=== PATIENT | female | born 1935 | race Caucasian/White ===

== ENCOUNTER 2016-05-23 16:16 | Observation (INO) | payer MEDICARE ==
[2016-05-23] MEDS ORDERED: Acetaminophen TAB* 325 MG PO PRN (17:34)
[2016-05-23] MEDS ORDERED: Ondansetron TAB* 4 MG PO PRN (17:46)
[2016-05-23] MEDS ORDERED: Cetirizine* 10 MG TAB PO PRN (17:47)
[2016-05-23] MEDS: Atorvastatin* 10 MG TAB PO SCH (18:13)
[2016-05-23] MEDS: Coenzyme Q10 (NF) ** ENTER STREGNTH IN LABEL DIRECTIONS PO SCH (18:14)
[2016-05-23] MEDS: Enoxaparin(*) 40 MG/0.4 ML SYR SUBCUT SCH (18:16)
[2016-05-23] MEDS: NS 0.9% 1000 ML* 1,000 ML IV SCH (18:27)
[2016-05-23] MEDS: Piperac/Tazob 3.375 gm in NS* 3.375 GM/100 ML BAG IVPB SCH (20:04)
[2016-05-23] MEDS: Calcium/Vitamin D TAB 250/125* TAB PO SCH (20:43)
--- NOTE | 2016-05-23 20:56 | RAD ---
INDICATION: Fever and cough COMPARISON: Chest x-ray December 19, 2015 TECHNIQUE: PA and lateral views of the chest were obtained. FINDINGS: The right internal jugular vein Mediport is appropriately positioned with the tip terminating at the cavoatrial junction. The heart and mediastinum are normal in size and contour. The lungs are grossly clear. There is no evidence of large pleural effusion. Visualized bones are normal for the patient's age. There is no radiographic evidence of free air beneath the diaphragm IMPRESSION: No radiographic evidence of acute cardiopulmonary disease.
--- NOTE | 2016-05-23 21:05 | RAD ---
HISTORY: Fever, leukocytosis and hyperbilirubinemia COMPARISONS: CT chest abdomen pelvis dated November 12, 2015 TECHNIQUE: Multiple transverse and longitudinal ultrasound images were obtained of the right upper quadrant. FINDINGS: LIVER: The liver is normal in dimensions and echogenicity. Normal hepatic and portal venous blood flow is duplicated with color flow imaging. There is no gross intrahepatic biliary duct dilatation. GALLBLADDER AND EXTRAHEPATIC BILIARY DUCT: The patient is status post cholecystectomy. There is no definite intrahepatic biliary duct dilatation. The common bile duct measures a maximum diameter of 4 mm. PANCREAS: The portions of the pancreas not obscured by bowel gas are normal in appearance. RIGHT KIDNEY: The right kidney is normal in size, morphology and echogenicity. IMPRESSION: NO ACUTE ABNORMALITY IN THE RIGHT UPPER QUADRANT PATIENT STATUS POST CHOLECYSTECTOMY.
[2016-05-24] MEDS: Piperac/Tazob 3.375 gm in NS* 3.375 GM/100 ML BAG IVPB SCH (05:09)
[2016-05-24] MEDS ORDERED: Levothyroxine TAB* 75 MCG TAB PO SCH (06:00)
[2016-05-24] MEDS ORDERED: Omeprazole CAP* 20 MG PO SCH (07:30)
[2016-05-24] MEDS: Coenzyme Q10 (NF) ** ENTER STREGNTH IN LABEL DIRECTIONS PO SCH (07:51)
[2016-05-24] MEDS: Calcium/Vitamin D TAB 250/125* TAB PO SCH (07:58)
[2016-05-24] MEDS ORDERED: Multivitamins/Minerals TAB PO SCH (09:00)
[2016-05-24] MEDS ORDERED: Losartan TAB* 25 MG PO SCH (09:00)
[2016-05-24] MEDS: NS 0.9% 1000 ML* 1,000 ML IV SCH (09:19)
[2016-05-24 10:07] LABS: Hematocrit 38 % (35-47); Hemoglobin 12.4 g/dl (12.0-16.0); Mean Corpuscular HGB Conc 33 g/dl (31-36); Mean Corpuscular Hemoglobin 28 pg (27-31); Mean Corpuscular Volume 85 fL (80-97); Mean Platelet Volume 7 um3 (7.4-10.4); Red Blood Count 4.47 10^6/ul (4.0-5.4); Red Cell Distribution Width 14 % (10.5-15); White Blood Count 8.6 10^3/ul (3.5-10.8)
[2016-05-24 10:11] LABS: Add Diff/Slide Review? Slide Review Added; Comments Flag Yes
[2016-05-24 10:28] LABS: Albumin 3.5 g/dL (3.2-5.2); BUN/Creatinine Ratio 13.7 (8-20); Calcium 8.6 mg/dL (8.6-10.3); EGFR African American 72.4 (>60); EGFR Non-African American 56.3 (>60); Globulin 2.3 g/dL (2-4); Potassium 3.3 mmol/L (3.5-5.0); Total Bilirubin 0.9 mg/dL (0.2-1.0); Total Protein 5.8 g/dL (6.4-8.9)
[2016-05-24 10:46] LABS: Eosinophils % 2 % (0-6); Immature Granulocytes 8 % (0-9); Metamyelocytes % 2 % (0-2); Neutrophil % 69 % (38-83); RBC Morphology Normal (Normal); Reactive Lymph % 1 % (0-6)
[2016-05-24] MEDS ORDERED: Azithromycin TAB* 250 MG PO ONE (10:48)
[2016-05-24] MEDS ORDERED: Potassium Chlor TAB* 20 MEQ TAB.ER PO SCH (11:00)
--- NOTE | 2016-05-24 11:03 | DS ---
- Discharge Summary BRIEF OBSERVATION DISCHARGE SUMMARY ADMIT DATE:05/23/2016 DISCHARGE DATE: 05/24/2016 DISCHARGE DIAGNOSIS: 1. bronchitis, likely viral 2. hypokalemia 3. hypomagnesemia 4. dehydration 5. 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 delay chemotherapy x 1 week, chemo now 06/02/2016 at 8 am 2. fu with primary MD within 4 weeks HOSPITAL COURSE: See full admit H+P , but briefly 81 yo F w CLL on immunotherapy presenting with low grade fevers, cough, left sinus and ear pressure and fatigue after being exposed to a family member with a viral URI. She was admitted and placed on IV antibiotics. She has slight increase in her bilirubin and so RUQ US was performed which was unremarkable. her flu swab was negative. She is feeling markedly better today and will be given a prescription for azithromycin to cover possible bacterial sources given her relative immunocompromise with her disease. She was also given electrolyte repletion IV and started on PO kcl. Her therapy will be delayed one week.
[2016-05-24 11:04] LABS: Magnesium 1.6 mg/dL (1.9-2.7)
[2016-05-24] MEDS: KCL 20 MEQ/100 ML IVPREMIX* 20 MEQ/100 ML BAG IV SCH ×2 (11:28→15:05)
[2016-05-24] MEDS ORDERED: Magnesium Sulfate 2 GM IV* 2 GM/50 ML BAG IVPB ONE (12:50)
[2016-05-24 15:59] VITALS: BP 120/59
[2016-05-24] MEDS: Atorvastatin* 10 MG TAB PO SCH (17:07)
[2016-05-24] MEDS: Enoxaparin(*) 40 MG/0.4 ML SYR SUBCUT SCH (17:25)
== END 2016-05-24 17:50 | disposition home or self-care (01) ==
LOC: MED 17:09
PROVIDERS: ADMIT Internal Medicine Hematology & Oncology; ATTEND Internal Medicine Hematology & Oncology
DX: J20.8 Acute bronchitis due to other specified organisms (principal); E87.6 Hypokalemia; E86.0 Dehydration; E83.42 Hypomagnesemia; C91.10 Chronic lymphocytic leukemia of B-cell type not having achieved remission; Z79.899 Other long term (current) drug therapy; Z88.8 Allergy status to other drugs, medicaments and biological substances
CPT/HCPCS: 36415; 71020; 76705; 80053; 83735; 85025; 87070; 87205; 87502; 96365; 96366; 96367; 99217; 99225; A9270-GY; G0378; J1642; J1650; J2543; J3475; J3480

== ENCOUNTER 2018-04-21 11:03 | Emergency (ER) | payer MEDICARE ==
[2018-04-21 11:21] VITALS: BP 142/78
--- NOTE | 2018-04-21 12:22 | UC ---
Respiratory Complaint HPI - HPI Summary HPI Summary: Patient: 4 day hx of cough, chest tightness, laryngitis. No fever. Hx. positive for CLL. MD: EVENS; 99.8; 142/78; p ox: 96. 5/10 chest tightness with breathing. Nurse: pt states she has had a cough starting sunday and lost her voice on sunday evening. pt states she has tightness ion her chest when she coughs. - History of Current Complaint Chief Complaint: UCRespiratory Stated Complaint: URI Time Seen by Provider: 04/21/18 12:13 Pain Intensity: 5 - Allergies/Home Medications Allergies/Adverse Reactions: Allergies Allergy/AdvReac Type Severity Reaction Status Date / Time ceftazidime Allergy Rash Verified 04/21/18 11:21 Home Medications: Home Medications Bimatoprost 0.01% OPHTH (NF) [Lumigan 0.01% OPHTH (NF)] 1 drop BOTH EYES QPM 07/08 [History Confirmed 04/21/18] Calcitonin ([place]) INJ* [Miacalcin INJ*] 200 mg .SEE ORDER 04/21/18 [History] PMH/Surg Hx/FS Hx/Imm Hx - Additional Past Medical History Additional PMH: PMH: CLL; previous episodes of bronchitis. Has hypertension, being treated, Losartan. Family: cvd, STROKE, htn - Surgical History Surgical History: Yes Surgery Procedure, Year, and Place: gallbladder, appi, lumpectomy, - Family History Known Family History: Positive: Hypertension - Social History Alcohol Use: Rare Alcohol Amount: 1-2 glasses wine/month Substance Use Type: None Smoking Status (MU): Never Smoked Tobacco - Immunization History Most Recent Influenza Vaccination: Fall 2015 Most Recent Tetanus Shot: UTD Most Recent Pneumonia Vaccination: 2014 Review of Systems All Other Systems Reviewed And Are Negative: Yes Constitutional: Positive: Negative. Negative: Fever, Chills Skin: Positive: Negative Eyes: Positive: Negative ENT: Positive: Negative Respiratory: Positive: Negative, Cough - intermittent, non-productive, no chest pain c/w pneumonia. Negative: Shortness Of Breath Cardiovascular: Positive: Negative Gastrointestinal: Positive: Negative Genitourinary: Positive: Negative Motor: Positive: Negative Neurovascular: Positive: Negative Musculoskeletal: Positive: Negative Neurological: Positive: Negative Psychological: Positive: Negative Is Patient Immunocompromised?: Yes - unclear; has been treated for CLL Physical Exam - Summary Physical Exam Summary: Appearance: The patient is well-appearing, is in no pain or distress, and is well-nourished. Eyes: Conjunctiva are clear. Pupils are equal and reactive to light and accommodation. Extra ocular muscle movement is intact. ENT: The hearing is grossly normal, the pharynx is normal, and the TMs are normal. There is no muffled or hoarse voice. No stridor. Neck: The neck is supple and there is no lymphadenopathy. Respiratory: The chest is nontender to palpation and without crepitus. The lungs are clear, there are normal breath sounds, and there is no respiratory distress. No wheezes, rales or rhonchi. Intermittent no productive cough. No chest tenderness with palpation. Cardiovascular: Heart sounds reveal a regular rate and rhythm. There are no clicks, rubs or murmurs. There are no carotid bruits or thrills. Circulation is grossly intact. Abdomen: The abdomen is soft and nontender. There is no organomegaly. Bowel sounds are present and within normal limits. No point tenderness at McBurneys point. Musculoskeletal: Strength is intact. The patient moves all extremities. Neurological: The patient is alert. Motor and sensory are examination grossly intact. Speech is normal. Psychological: The patient displays age appropriate behavior Skin: Negative for rashes. Triage Information Reviewed: Yes Vital Signs: Initial Vital Signs Temp 99.8 F 04/21/18 11:16 Pulse 97 04/21/18 11:16 Resp 18 04/21/18 11:16 BP 142/78 04/21/18 11:16 Pulse Ox 96 04/21/18 11:16 Diagnostic Evaluation - Laboratory O2 Sat by Pulse Oximetry: 96 Respiratory Course/Dx - Course Course Of Treatment: D3-year-old female with a four-day history of a nonproductive cough yesterday [facility] with her daughter concerned about pneumonia and bronchitis. Patient has a history of CLL although she is not currently being treated for that. She has been treated in the past with azithromycin for bronchitis. Her examination shows the lungs to be clear. Her temperature is 99.8, and I discussed with the patient and her daughter the pros and cons of taking an antibiotic. We decided that the patient would begin Zithromax and call her oncologist tomorrow to review her condition and treatment. - Differential Dx/Diagnosis Differential Diagnosis/HQI/PQRI: Asthma, Bronchitis, Laryngitis, Lower Resp Infection, Pulmonary Embolism, Sinusitis Provider Diagnosis: Bronchitis Discharge - Sign-Out/Discharge Documenting (check all that apply): Patient Departure All imaging exams completed and their final reports reviewed: No Studies - Discharge Plan Condition: Stable Disposition: HOME Prescriptions: Azithromycin TAB* [Zithromax TAB*] 250 mg PO DAILY #6 tab Patient Education Materials: Acute Bronchitis (ED) Referrals: Carlos Becker MD [Primary Care Provider] - Additional Instructions: WE DISCUSSED: PLEASE SEEK CARE AT THE EMERGENCY DEPARTMENT IF SYMPTOMS WORSEN OR IF NEW SYMPTOMS DEVELOP. FOLLOW UP WITH YOUR PRIMARY CARE PHYSICIAN IF CONDITION CONTINUES BEYOND 3 DAYS WITHOUT IMPROVEMENT. YOUR DIAGNOSIS IS: BRONCHITIS YOUR PRESCRIPTION RECOMMENDATION IS: Zithromax for 5 days OTHER INSTRUCTIONS: Call your physician tomorrow to discuss current condition and treatment. For laryngitis and cough: restrict speaking; rest voice; warm tea and honey; vaporizer. Try to keep throat and lungs moist. - Billing Disposition and Condition Condition: STABLE Disposition: Home
== END 2018-04-21 12:45 | disposition home or self-care (01) ==
LOC: UCEAST 11:03
DX: J40 Bronchitis, not specified as acute or chronic (principal); Z88.1 Allergy status to other antibiotic agents
CPT/HCPCS: 99212; G0463

== ENCOUNTER 2018-08-03 09:32 | Emergency (ER) | payer MEDICARE ==
--- OUTSIDE RECORDS SUMMARY | 2018-08-03 09:44 | XMS REPORT | Continuity of Care Document ---
:1935 External Reference #:[id number] Author Name Xavier José, OD Address [address] [place] [address] Care Team Providers Name Role Phone Carlos Becker MD Care Team Information Open Shank Coverer Unavailable Eugenio ROSE, Carlos Primary Care Physician Unavailable Payers Date Identification Numbers Payment Provider Subscriber Policy Number: [id number] [facility] Medicare Debbie Duncan PayID: [id number] [address] [address] [place] [address] Advance Directives Description No Information Available Problems Description No Information Family History Date Family Member(s) Observation Comments Father Glasses Father High BP Father Heart Disease Father Cerebrovascular Accident Mother Glasses Mother Heart Disease Social History Type Date Description Comments Sex Unknown ETOH Use Rarely consumes alcohol Tobacco Use Start: Unknown Patient has never smoked Smoking Status Reviewed: 07/11/18 Patient has never smoked Allergies, Adverse Reactions, Alerts Date Description Reaction Status Severity Comments 04/04/2017 Ceftazidime Sodium Active Medications Medication Date Status Form Strength Qnty SIG Indications Ordering Provider Rajesh 05/23/ Active Solution 0.01% 7.5uni Instill 1 2017 ts Drop In Arnav, OD Both Eyes Every Night AT Bedtime Calcitonin / Active Solution 200Unit/Ac Unknown ([place]) 0000 t Caltrate 600 / Active Tablets 1500(600Ca Unknown 0000 ) mg Cetirizine HCL / Active Tablets 10mg Unknown 0000 Co Q 10 / Active Capsules 10mg Unknown 0000 Lansoprazole / Active Capsules 30mg Unknown 0000 DR Levothyroxine / Active Tablets 75mcg Unknown Sodium 0000 Losartan 00/ Active Tablets 100mg Unknown Potassium 0000 Simvastatin 00/00/ Active Tablets 20mg Unknown 0000 Leukeran /00/ Active Tablets 2mg Unknown 0000 Rajesh 04/10/ Hx Solution 0.01% 7.500m one drop Xavier Johnson - l every Arnav, OD 05/23/ night at 2018 bedtime both eyes Immunizations Description No Information Available Vital Signs Date Vital Result Comment 04/05/2018 11:02am Intraocular Pressure Right Eye 17 mmHg Intraocular Pressure Left Eye 17 mmHg 11/20/2017 8:40am Intraocular Pressure Right Eye 18 mmHg Intraocular Pressure Left Eye 19 mmHg 08/21/2017 10:06am Intraocular Pressure Right Eye 19 mmHg Intraocular Pressure Left Eye 18 mmHg 05/23/2017 10:04am Intraocular Pressure Right Eye 20 mmHg Intraocular Pressure Left Eye 20 mmHg 04/10/2017 8:36am Intraocular Pressure Right Eye 28 mmHg Intraocular Pressure Left Eye 26 mmHg Cornea Thickness Left Eye 572 m Cornea Thickness Right Eye 590 m Pachymetry adjusted IOP Right Eye -1 Pachymetry adjusted IOP Left Eye -3 04/04/2017 9:19am Intraocular Pressure Right Eye 25 mmHg Intraocular Pressure Left Eye 25 mmHg Results Description No Information Available Procedures Date Code Description Status 07/11/2018 27888 Visual Field Exam Extended, Unilateral Or Bilateral Completed 07/11/2018 97255 Eye Exam Est Intermediate Completed 04/05/2018 52948 Fundus Photography W/Interpretation & Report Completed 04/05/2018 75292 Eye Exam Est Comprehensive Completed 11/20/2017 62855 Eye Exam Est Intermediate Completed 05/23/2017 56500 Eye Exam Est Intermediate Completed 04/10/2017 91400 Oct, Optic Nerve Completed 04/10/2017 58279 Visual Field Exam Extended, Unilateral Or Bilateral Completed 04/10/2017 18196 Eye Exam Est Intermediate Completed 04/04/2017 29783 Fundus Photography W/Interpretation & Report Completed 04/04/2017 43958 Eye Exam New Intermediate Completed Encounters Type Date Location Provider Dx Diagnosis Office Visit 08/21/2017 Main Office Xavier José, OD H40.1131 Primary open-angle 9:45a glaucoma, bilateral, mild stage Plan of Treatment 07/11/2018 - Xavier José, [id number] Combined forms of age-related cataract, [id number] Primary open-angle glaucoma, bilateral, mild stageFollow up:3 mos OCT nerve, sooner PRN
[2018-08-03] MEDS ORDERED: Acetaminophen TAB* 325 MG PO ONE (10:22)
[2018-08-03] MEDS ORDERED: Lactated Ringers 1000 ML Bag* 1,000 ML IV.FLUID IV ONE (10:22)
[2018-08-03] MEDS ORDERED: Cefepime(*) 1 GM in NS 0.9% 50 ML* 50 ML IVPB ONE ×2 (10:26→11:00)
[2018-08-03] MEDS: NS 0.9% 1000 ML** 1,000 ML IV ONE ×2 (10:28→10:54)
[2018-08-03] MEDS ORDERED: NS 0.9% 1000 ML** 1,000 ML IV ONE (10:28)
[2018-08-03 10:30] LABS: ABS Basophils 0 10^3/ul (0-0.2); ABS Eosinophils 0 10^3/ul (0-0.6); ABS Lymphocytes 0.5 10^3/ul (1.0-4.8); ABS Monocytes 0.8 10^3/ul (0-0.8); ABS Neutrophils 6.5 10^3/ul (1.5-7.7); ABS Nucleated RBC 0 10^3/ul; Eosinophil % 0.6 %; Hematocrit 39 % (33-41); Hemoglobin 13.1 g/dL (12.0-16.0); Lymphocyte % 6.4 %; Mean Corpuscular HGB Conc 33 g/dL (31-36); Mean Corpuscular Hemoglobin 29 pg (27-31); Mean Corpuscular Volume 89 fL (80-97); Mean Platelet Volume 7.2 fL (7.4-10.4); Nucleated Red Blood Cells % 0; Platelet Count 61 10^3/uL (150-450); Red Blood Count 4.44 10^6 /uL (3.70-4.87); Red Cell Distribution Width 14 % (10.5-15); White Blood Count 7.8 10^3/uL (3.5-10.8)
[2018-08-03 10:47] LABS: Albumin 4.1 g/dL (3.2-5.2); Albumin/Globulin Ratio 2.2 (1-3); BUN/Creatinine Ratio 13.9 (8-20); Calcium 9.1 mg/dL (8.6-10.3); EGFR African American 54.4 (>60); Globulin 1.9 g/dL (2-4); Potassium 3.9 mmol/L (3.5-5.0); Total Bilirubin 0.9 mg/dL (0.2-1.0)
--- NOTE | 2018-08-03 10:56 | ED ---
HPI Febrile Illness - HPI Summary HPI Summary: Patient is an 83-year-old female presenting to the ED with fever and cough. Patient is a CLL patient and sees Dr. Brown and MADHAVI Aquino. On arrival, patient states she feels well, however endorses some sweats and chills. She states she believes this is at her baseline no due to the CLL. Daughter at bedside stated she was febrile at home with a cough. She last took her chemotherapy medications on 07/24/18 (10 days ago). She does endorse a cough, however is not bringing anything up with this. Daughter states this is a dry cough. Denies any worsening SOB. Denies known sick contacts. She did receive her flu and pneumonia vaccinations this year. Patient denies any CP. - History of Current Complaint Chief Complaint: EDUpperRespComplaint Hx Obtained From: Patient Onset/Duration: Started Hours Ago Timing: Constant Initial Severity: Mild Current Severity: Mild Pain Intensity: 0 Pain Scale Used: 0-10 Numeric Aggravating Factors: Nothing Alleviating Factors: Nothing Associated Signs and Symptoms: Chills, Cough, Diaphoresis, Night Sweats - Risk Factors Pseudomonas Risk Factors: Negative Serious Bacterial Infection Risk Factors: Negative - Additional Pertinent History Primary Care Physician: [id number] - Allergy/Home Medications Allergies/Adverse Reactions: Allergies Allergy/AdvReac Type Severity Reaction Status Date / Time ceftazidime Allergy Rash Verified 08/03/18 09:57 Home Medications: Home Medications Acetaminophen [Tylenol Extra Strength] 500 mg PO Q6H PRN 08/03/18 [History Confirmed 08/03/18] Cetirizine* [ZyrTEC 10 MG TAB*] 10 mg PO DAILY 08/03/18 [History Confirmed 08/03] Multivitamin [Multivitamins] 1 cap PO DAILY 08/03/18 [History Confirmed 08/03/18 ] Ubidecarenone/[place]-3/Vit E [Co Q-10 Vitamin E Fish Oi] 1 cap PO DAILY 08/03/18 [History Confirmed 08/03/18] PMH/Surg Hx/FS Hx/Imm Hx Previously Healthy: Yes Endocrine/Hematology History: Reports: Hx Thyroid Disease, Hx Anemia Denies: Hx Diabetes Cardiovascular History: Reports: Hx Hypercholesterolemia, Hx Hypertension Denies: Hx Congestive Heart Failure Comment Only: Other Cardiovascular Problems/Disorders - POWERPORT REMOVAL Respiratory History: Denies: Hx Pneumonia GI History: Reports: Hx Gall Bladder Disease - removed, Other GI Disorders - appendectomy History: Reports: Hx Renal Disease - abnormal gfr, Other Problems/ Disorders - prolapsed uterus, with pessary Denies: Hx Dialysis Musculoskeletal History: Reports: Hx Arthritis, Other Musculoskeletal History - degenerative disc disease, sciatica Sensory History: Reports: Hx Cataracts - mild, Hx Contacts or Glasses Opthamlomology History: Reports: Hx Cataracts - mild, Hx Contacts or Glasses Neurological History: Reports: Other Neuro Impairments/Disorders - degenerative disc disease with sciatica - Cancer History Cancer Type, 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 Hx Chemotherapy: Yes Hx Radiation Therapy: No Hx Palliative Cancer Treatment: No - Surgical History Surgery Procedure, Year, and Place: sun,appendectomy, lumpectomy benign - Immunization History Hx Pertussis Vaccination: No Immunizations Up to Date: Yes Infectious Disease History: No Infectious Disease History: Denies: Traveled Outside the [place] in Last 30 Days - Family History Known Family History: Positive: Hypertension - Social History Occupation: Unemployed Lives: With Family Alcohol Use: Rare Alcohol Amount: 1-2 glasses wine/month Substance Use Type: Reports: None Hx Tobacco Use: No Smoking Status (MU): Never Smoked Tobacco Review of Systems Positive: Fever, Chills, Skin Diaphoresis Negative: Epistaxis, Dental Pain Negative: Palpitations, Chest Pain Positive: Cough. Negative: Shortness Of Breath Negative: Abdominal Pain, Vomiting, Diarrhea, Nausea Genitourinary: Negative Positive: no symptoms reported, see HPI Negative: Arthralgia, Myalgia Skin: Negative Negative: Headache, Weakness All Other Systems Reviewed And Are Negative: Yes Physical Exam Triage Information Reviewed: Yes Vital Signs On Initial Exam: Initial Vitals Temp Pulse Resp BP Pulse Ox 100 F 99 20 119/67 95 08/03/18 09:35 08/03/18 09:35 08/03/18 09:35 08/03/18 09:35 08/03/18 09:35 Vital Signs Reviewed: Yes Appearance: Positive: Well-Appearing, Well-Nourished Skin: Positive: Warm Head/Face: Positive: Normal Head/Face Inspection Eyes: Positive: EOMI, BATSHEVA, Conjunctiva Clear Neck: Positive: Supple, No Lymphadenopathy Respiratory/Lung Sounds: Positive: Clear to Auscultation, Breath Sounds Present Cardiovascular: Positive: RRR, Pulses are Symmetrical in both Upper and Lower Extremities Musculoskeletal: Positive: Strength/ROM Intact Neurological: Positive: Speech Normal Psychiatric: Positive: Affect/Mood Appropriate Diagnostics - Vital Signs Vital Signs Temp Pulse Resp BP Pulse Ox 08/03/18 10:21 101.9 F 08/03/18 09:50 101 17 96 08/03/18 09:35 100 F 99 20 119/67 95 - Laboratory Lab Results: Lab Results 08/03/18 08/03/18 08/03/18 Range/Units 10:14 10:14 10:14 WBC 7.8 (3.5-10.8) 10^3/uL RBC 4.44 (3.70-4.87) 10^6 /uL Hgb 13.1 (12.0-16.0) g/dL Hct 39 (33-41) % MCV 89 (80-97) fL MCH 29 (27-31) pg MCHC 33 (31-36) g/dL RDW 14 (10.5-15) % Plt Count 61 L (150-450) 10^3/uL MPV 7.2 L (7.4-10.4) fL Neut % (Auto) 82.5 % Lymph % (Auto) 6.4 % [place] % (Auto) 10.4 % Eos % (Auto) 0.6 % Baso % (Auto) 0.1 % Absolute Neuts (auto) 6.5 (1.5-7.7) 10^3/ul Absolute Lymphs (auto) 0.5 L (1.0-4.8) 10^3/ul Absolute Monos (auto) 0.8 (0-0.8) 10^3/ul Absolute Eos (auto) 0 (0-0.6) 10^3/ul Absolute Basos (auto) 0 (0-0.2) 10^3/ul Absolute Nucleated RBC 0 10^3/ul Nucleated RBC % 0 Sodium 139 (135-145) mmol/L Potassium 3.9 (3.5-5.0) mmol/L Chloride 104 (101-111) mmol/L Carbon Dioxide 27 (22-32) mmol/L Anion Gap 8 (2-11) mmol/L BUN 16 (6-24) mg/dL Creatinine 1.15 H (0.51-0.95) mg/dL Est GFR ( Amer) 54.4 (>60) Est GFR (Non-Af Amer) 45.0 (>60) BUN/Creatinine Ratio 13.9 (8-20) Glucose 113 H (70-100) mg/dL Lactic Acid 0.7 (0.5-2.0) mmol/L Calcium 9.1 (8.6-10.3) mg/dL Total Bilirubin 0.90 (0.2-1.0) mg/dL AST 21 (13-39) U/L ALT 16 (7-52) U/L Alkaline Phosphatase 63 (34-104) U/L Total Protein 6.0 L (6.4-8.9) g/dL Albumin 4.1 (3.2-5.2) g/dL Globulin 1.9 L (2-4) g/dL Albumin/Globulin Ratio 2.2 (1-3) Result Diagrams: 08/03/18 10:14 08/03/18 10:14 Lab Statement: Any lab studies that have been ordered have been reviewed, and results considered in the medical decision making process. Course/Dx - Course Course Of Treatment: On arrival into the ED, labs are drawn including blood cultures. Chest x-ray and flu swab are also drawn. On arrival she has one 101.9, respirations 22, O2 sat is 96%, BP 119/67 and she is tachycardia 102. Sepsis protocol initiated based on temp, respirations and slightly tachycardic. She is ordered 30 cc per kg NS and cepefime 2mg. She is given tylenol 650mg for her fever. Discussed with MADHAVI Aquino. Flu swab is positive. She was discontinued her cefepime and normal saline. She was given Tamiflu in the ED. She was prescribed Tamiflu. Port was flushed with heparin 5. She will follow up with Dr. Brown's office on Sunday. - Febrile Illness Differential Diagnoses: Other: - Influenza, pneumonia, upper respiratory, viral syndrome - Diagnoses Provider Diagnoses: Influenza A - Provider Notifications Discussed Care Of Patient With: Alf Barlow - will see in ED - Critical Care Time Critical Care Time: 30-74 min - Critical care time 30-74 Discharge - Sign-Out/Discharge Documenting (check all that apply): Patient Departure Patient Received Moderate/Deep Sedation with Procedure: No - Discharge Plan Condition: Stable Disposition: HOME Prescriptions: Oseltamivir CAP* [Tamiflu CAP*] 75 mg PO BID #9 cap Patient Education Materials: Influenza (ED) Referrals: Alf Barlow PA [Physician [employer] Sharpshooter] - Carlos Becker MD [Primary Care Provider] - Junior Brown MD [Medical Doctor] - Additional Instructions: Please follow up with Dr. Brown's office next week Call sunday for appt Tamiflu twice daily x 5 days Tyenol for any fevers sweats or chills Try to stay away from sick contacts Rest as much as possible - Billing Disposition and Condition Condition: STABLE Disposition: Home
[2018-08-03 11:12] LABS: Influenza A Molecular POSITIVE (Negative)
[2018-08-03] MEDS ORDERED: Oseltamivir CAP* 75 MG CAP PO ONE (11:29)
--- NOTE | 2018-08-03 12:12 | PN ---
Progress Note - Progress Note Date of Service: 08/03/18 SOAP: Subjective: [Debbie called earlier today with c/o fever and dry cough. Reported the cough started , but today was the first day of fever. No SOB. Mild fatigue. She was referred to the ER for evaluation. She was febrile to 101.3 when she reached the ER. Evaluation was significant for +influenza A, no infiltrated on CXR and labs WNL, no neutropenia. She reports that she otherwise feels well and would like to be discharged home.] Objective: [ Laboratory Results - last 24 hr 08/03/18 08/03/18 08/03/18 10:14 10:14 10:14 WBC 7.8 RBC 4.44 Hgb 13.1 Hct 39 MCV 89 MCH 29 MCHC 33 RDW 14 Plt Count 61 L MPV 7.2 L Neut % (Auto) 82.5 Lymph % (Auto) 6.4 [place] % (Auto) 10.4 Eos % (Auto) 0.6 Baso % (Auto) 0.1 Absolute Neuts (auto) 6.5 Absolute Lymphs (auto) 0.5 L Absolute Monos (auto) 0.8 Absolute Eos (auto) 0 Absolute Basos (auto) 0 Absolute Nucleated RBC 0 Nucleated RBC % 0 Sodium 139 Potassium 3.9 Chloride 104 Carbon Dioxide 27 Anion Gap 8 BUN 16 Creatinine 1.15 H Est GFR ( Amer) 54.4 Est GFR (Non-Af Amer) 45.0 BUN/Creatinine Ratio 13.9 Glucose 113 H Lactic Acid 0.7 Calcium 9.1 Total Bilirubin 0.90 AST 21 ALT 16 Alkaline Phosphatase 63 Total Protein 6.0 L Albumin 4.1 Globulin 1.9 L Albumin/Globulin Ratio 2.2 Influenza A (Rapid) 08/03/18 11:07 WBC RBC Hgb Hct MCV MCH MCHC RDW Plt Count MPV Neut % (Auto) Lymph % (Auto) [place] % (Auto) Eos % (Auto) Baso % (Auto) Absolute Neuts (auto) Absolute Lymphs (auto) Absolute Monos (auto) Absolute Eos (auto) Absolute Basos (auto) Absolute Nucleated RBC Nucleated RBC % Sodium Potassium Chloride Carbon Dioxide Anion Gap BUN Creatinine Est GFR ( Amer) Est GFR (Non-Af Amer) BUN/Creatinine Ratio Glucose Lactic Acid Calcium Total Bilirubin AST ALT Alkaline Phosphatase Total Protein Albumin Globulin Albumin/Globulin Ratio Influenza A (Rapid) Positive A Vital Signs: Temp Pulse Resp BP Pulse Ox 101.9 F 101 17 119/67 96 08/03/18 10:21 08/03/18 09:50 08/03/18 09:50 08/03/18 09:35 08/03/18 09:50 Exam: Gen: Well appearing 83 yo female in NAD, accompanied by her daughter HEENT: MMM CV: RRR, no m/r/g Resp: CTA, no w/c/r] Assessment: [69 yo female with CLL currently treated with obinituzumab/chlorambucil with her last cycle starting 07/24/18 who presented with fever and cough. Influenza A positive, but clinically looks well and is appropriate for outpatient treatment. ] Plan: [1. Influenza A - Tamiflu 75 mg bid x 5d 2. CLL Dispo: appropriate for dc home. Case discussed with ER provider MADHAVI Stout. Will plan to see in clinic Wed 08/07 for follow up. Instructed her to please call with worsening symptoms]
[2018-08-03 12:25] VITALS: BP 125/64
== END 2018-08-03 12:30 | disposition home or self-care (01) ==
LOC: ED 09:32
DX: J11.1 Influenza due to unidentified influenza virus with other respiratory manifestations (principal); R50.9 Fever, unspecified; R05 Cough; I10 Essential (primary) hypertension
CPT/HCPCS: 36415; 71046; 80053; 83605; 85025; 87040; 96361; 96365; 96375; 99284; A9270-GY; J0692; J1642

== ENCOUNTER 2019-01-28 08:23 | Day surgery (SDC) | payer MEDICARE ==
[~2019-01-28 08:23] MED LIST: Acetaminophen TAB* 325 MG PO PRN; Buffered Lidocaine 1% SYRIN* 1 ML/SYRINGE INTRADERM ONE; Cyclopentolate 1% OPTH.SOL* 2 ML BTL ONE; Ketorolac 0.5% OPHTH (NF) 0.5 % 5 ML BTL ONE; Lidocaine 1% MPF ** 5 ML VIAL ONE; Neomycin/Polymy/Dex OPHTH.OIN* 3.5 GM ONE; Phenylephrine OPHTH SOL 2.5%* 2 ML ONE; Tetracaine 0.5% OPTH.SOL 4 ML* 1 DROP BTL ONE; Tropicamide 1% OPTH.SOL* BTL ONE
[2019-01-28] MEDS ORDERED: fentaNYL* 50 MCG/ML 2 ML VIAL (100 MCG VIAL) ONE (09:17)
[2019-01-28] MEDS ORDERED: Midazolam* 1 MG/ML 2 ML VIAL (2 MG) ONE (09:17)
[2019-01-28 10:59] VITALS: BP 121/65
--- NOTE | 2019-01-28 14:31 | OP ---
DATE OF OPERATION: 01/28/19 - [facility] DATE OF : 33 SURGEON: Delmar Mantilla MD NEEDLE LOOM TENDER: None. ANESTHESIA: Topical with intravenous sedation. PRE-OP DIAGNOSIS: Cataract, glaucoma and astigmatism, right eye. POST-OP DIAGNOSIS: Cataract, glaucoma and astigmatism, right eye. OPERATIVE PROCEDURE: Phacoemulsification and cataract extraction with posterior chamber intraocular toric lens and iStent implant, right eye. COMPLICATIONS: None. BLOOD LOSS: None. DESCRIPTION OF PROCEDURE: The patient was brought to the operating room and received intravenous sedation. A drop of tetracaine was placed in her right eye. The patient was prepped and draped in the usual sterile fashion for ophthalmic surgery and attention was directed to the right eye where a speculum was placed. A paracentesis was created at the 11 o'clock position. 0.1 cc of 1% preservative- free lidocaine was injected into the anterior chamber followed by DisCoVisc. The eye was digitally stabilized while a 2.75-mm keratome was used to create a triplanar clear corneal incision at the 9 o'clock position. A continuous curvilinear capsulorrhexis was created using a cystotome and Utrata forceps. BSS on a cannula was used to hydrodissect the lens from the capsule. Phacoemulsification was performed in a lvavsv-[id number]-[id number] technique to create 4 fragments, which were removed. Residual cortical material was removed with irrigation and aspiration. The capsular bag was polished. The eye was filled with Provisc. The surface of the eye was lubricated. The eye pressure was checked. The ORA device was employed. An SN6AT4 22 diopter lens was chosen. It was aligned up with the reticle on the ORA and then rotated to approximately 5 degrees. Supplemental DisCoVisc was used to inflate the anterior chamber and coat the surface of the cornea. The patient's head was rotated away from the surgeon and the microscope was rotated toward the surgeon. An iStent on its topographic computator was introduced into the anterior chamber and a gonioprism was placed on the surface of the eye. Under direct visualization, the iStent was introduced into the nasal trabecular meshwork. The topographic computator and the prism were removed. The head and the microscope were returned to a neutral position. Irrigation and aspiration were performed to remove viscoelastic from the eye. The lens remained in stable axial alignment. BSS on the cannula was used to hydrate the corneal stoma. At the end of the case, the pupil was round. The lens was centered, stable and axially aligned. The iStent was in good position. The eye pressure appeared normal. The wound was watertight. The speculum was removed and topical Maxitrol ointment was placed on the surface of the eye. The eye was closed, patched, and shielded and the patient was sent to the recovery room in stable condition with postoperative instructions and followup appointment given. [id number] #: [id number] [place]
== END 2019-01-28 10:50 | disposition home or self-care (01) ==
LOC: OREAST 08:23
PROVIDERS: ATTEND Ophthalmology
DX: H25.11 Age-related nuclear cataract, right eye (principal); H40.10X1 Unspecified open-angle glaucoma, mild stage; C95.11 Chronic leukemia of unspecified cell type, in remission; I10 Essential (primary) hypertension; E78.5 Hyperlipidemia, unspecified; E03.9 Hypothyroidism, unspecified; K21.9 Gastro-esophageal reflux disease without esophagitis
CPT/HCPCS: A9270-GY; C1783; J2250; J3010; V2787

== ENCOUNTER 2019-02-04 08:07 | Day surgery (SDC) | payer MEDICARE ==
[~2019-02-04 08:07] MED LIST changes: -Acetaminophen TAB* 325 MG PO PRN; -Cyclopentolate 1% OPTH.SOL* 2 ML BTL ONE; -Ketorolac 0.5% OPHTH (NF) 0.5 % 5 ML BTL ONE; -Lidocaine 1% MPF ** 5 ML VIAL ONE; -Neomycin/Polymy/Dex OPHTH.OIN* 3.5 GM ONE; -Phenylephrine OPHTH SOL 2.5%* 2 ML ONE; -Tetracaine 0.5% OPTH.SOL 4 ML* 1 DROP BTL ONE; -Tropicamide 1% OPTH.SOL* BTL ONE
[2019-02-04] MEDS ORDERED: fentaNYL* 50 MCG/ML 2 ML VIAL (100 MCG VIAL) ONE (09:29)
[2019-02-04] MEDS ORDERED: Midazolam* 1 MG/ML 2 ML VIAL (2 MG) ONE (09:29)
[2019-02-04 10:16] VITALS: BP 114/59
[2019-02-04] MEDS ORDERED: Cyclopentolate 1% OPTH.SOL* 2 ML BTL ONE (10:25)
[2019-02-04] MEDS ORDERED: Phenylephrine OPHTH SOL 2.5%* 2 ML ONE (10:25)
[2019-02-04] MEDS ORDERED: Tropicamide 1% OPTH.SOL* BTL ONE (10:25)
[2019-02-04] MEDS ORDERED: Lidocaine 1% MPF ** 5 ML VIAL ONE (10:25)
[2019-02-04] MEDS ORDERED: Neomycin/Polymy/Dex OPHTH.OIN* 3.5 GM ONE (10:25)
[2019-02-04] MEDS ORDERED: Tetracaine 0.5% OPTH.SOL 4 ML* 1 DROP BTL ONE (10:25)
[2019-02-04] MEDS ORDERED: Ketorolac 0.5% OPHTH (NF) 0.5 % 5 ML BTL ONE (10:25)
--- NOTE | 2019-02-04 14:11 | OP ---
DATE OF OPERATION: 02/04/19 - [facility] DATE OF : 33 SURGEON: Delmar Mantilla MD DIGITAL FORENSICS EXAMINER: None. ANESTHESIA: Topical with intravenous sedation. PRE-OP DIAGNOSIS: Cataract, astigmatism, and glaucoma, left eye. POST-OP DIAGNOSIS: Cataract, astigmatism, and glaucoma, left eye. OPERATIVE PROCEDURE: Phacoemulsification and cataract extraction with toric posterior chamber intraocular lens implant and iStent implant, left eye. COMPLICATIONS: None. BLOOD LOSS: None. DESCRIPTION OF PROCEDURE: The patient was brought to the operating room and received intravenous sedation. A drop of tetracaine was placed in her left eye. The patient was prepped and draped in the usual sterile fashion for ophthalmic surgery and attention was directed to the left eye where a speculum was placed. A paracentesis was created at the 5 o'clock position and 0.1 cc of 1% preservative- free lidocaine was injected into the anterior chamber followed by DisCoVisc. The eye was digitally stabilized while a 2.75 mm keratome was used to create a triplanar clear corneal incision at the 3 o'clock position. A continuous curvilinear capsulorrhexis was created with cystotome and Utrata forceps. BSS on a cannula was used to hydrodissect the lens from the capsule. Phacoemulsification was performed in a [id number]-[id number] technique to create 4 fragments, which were removed. Residual cortical material was removed with irrigation and aspiration. The capsular bag was inflated with Provisc. The surface of the eye was lubricated and the eye pressure was checked. The ORA device was employed to help the guide lens choice. An SN6AT3 21.5 diopter lens was folded and inserted into the capsular bag. It was dialed to 13 degree axis as indicated with a Sinskey hook. Supplemental DisCoVisc was then applied into the anterior chamber to deepen it and also onto surface of the cornea. The patient's head was rotated away from the surgeon and the microscope was rotated towards the surgeon. An iStent on its ranch supervisor was introduced into the anterior chamber. A gonioprism was placed on the surface of the eye. Under direct visualization, the iStent was inserted into the nasal trabecular meshwork. The ranch supervisor and the prism were removed. The head and the microscope were returned to a neutral position. The Sinskey hook was placed to the paracentesis to stabilize the lens while irrigation and aspiration were performed to remove viscoelastic from the eye. The Sinskey hook was removed. BSS on the cannula was used to hydrate the stoma and seal the wound of the cornea. At the end of the case, the pupil was round. The lens was centered, stable, and axially aligned. The iStent was in good position and the eye pressure appeared normal. The wound was watertight. The speculum was removed and topical Maxitrol ointment was placed on the surface of the eye. The eye was closed, patched, and shielded and the patient was sent to the recovery room in stable condition with postoperative instructions and followup appointment given. [id number] #: [id number] [place]
== END 2019-02-04 10:28 | disposition home or self-care (01) ==
LOC: OREAST 08:07
PROVIDERS: ATTEND Ophthalmology
DX: H25.012 Cortical age-related cataract, left eye (principal); H40.1121 Primary open-angle glaucoma, left eye, mild stage; H52.202 Unspecified astigmatism, left eye; C91.10 Chronic lymphocytic leukemia of B-cell type not having achieved remission; I10 Essential (primary) hypertension; E78.5 Hyperlipidemia, unspecified; E03.9 Hypothyroidism, unspecified; K21.9 Gastro-esophageal reflux disease without esophagitis
CPT/HCPCS: A9270-GY; C1783; J2250; J3010; V2787